=== PATIENT | female | born 1960 | race Caucasian/White ===

== ENCOUNTER → 2016-09-23 | Outpatient (CLI) | payer BC ==
--- NOTE | 2016-09-23 09:41 | WOMENS IMAGING REPORT ---
EXAM DESCRIPTION: RIGHT DIAGNOSTIC MAMMO W/CAD; U/S BREAST UNILAT LIMITED COMPLETED DATE/TIME: 09/23/2016 8:38 am; 09/23/2016 9:00 am REASON FOR STUDY: N63, BREAST LUMP; RT BREAST LUMP N63 UNSPECIFIED LUMP IN BREAST COMPARISON: Previous mammograms since 2011 TECHNIQUE: Right breast 90 mediolateral view, right breast cone compression craniocaudal and mediol ateral oblique images of the breast recorded with digital acquisition. Right breast ultrasound LIMITATIONS: None. FINDINGS: BREAST: Right MASSES: In the 6 o'clock position, a well-circumscribed low-density mammographic nodule is present 8 to 9 mm in diameter. CALCIFICATIONS: No new or suspicious calcifications. ARCHITECTURAL DISTORTION: None. DEVELOPING DENSITY: None. ASYMMETRY: None noted. OTHER: No other significant findings. Right breast ultrasound: Ultrasound of the right breast 6 to 7 o'clock position 5 cm from the nipple demonstrates a well-circu mscribed hypoechoic nodule with low level internal echoes. There is acoustic through transmission. This is not a simple cyst. This may represent a papilloma or fibroadenoma. A well-circumscribed mal ignant nodule could not entirely be excluded. IMPRESSION: Complex cystic versus hypoechoic solid nodule right breast 6 o'clock position, 8 to 9 mm in diameter. This is indeterminate for malignancy, ultrasound-guided core biopsy post biopsy clip p lacement and follow-up two-view mammogram recommended. These findings were discussed with the patient the time of the encounter. She understands a biopsy i s warranted. BREAST DENSITY: c. The breasts are heterogeneously dense, which may obscure small masses. BIRAD: 4B-Suspicious abnormality: Lesion which may require intervention with intermediate suspicion for malignancy. RECOMMENDATION: RECOMMENDED FOLLOW UP: Right breast ultrasound-guided core biopsy, post biopsy clip placement with follow-up two-view mammogram of the nodule right breast 6 o'clock position 5 cm from t he nipple. SPECIFIC INTERVENTION/IMAGING/CONSULTATION RECOMMENDED:As above COMMUNICATION:These results were discussed with the patient. She understands the need for biopsy. COMMENT: The patient has been notified of the results by letter per MQSA requirements. Additional no tification policies are in place for contacting patient with suspicious or incomplete findings. Quality ID #225: The [employer] recommends an annual screening mammogram for women aged 40 years or over. This facility utilizes a reminder system to ensure that all patients receive reminder letters, and/or direct phone calls for appointments. This includes reminders for routine scr eening mammograms, diagnostic mammograms, or other Breast Imaging Interventions when appropriate. Th is patient will be placed in the appropriate reminder system. The [employer] ([employer]) has developed recommendations for screening MRI of the breast s in certain patient populations, to be used in conjunction with mammography. Breast MRI surveillanc e may be appropriate for women with more than 20% lifetime risk of developing breast cancer as deter mined by genetic testing, significant family history of the disease, or history of mantle radiation f or Hodgkins Disease. ACR Practice Guidelines 2008. TECHNICAL DOCUMENTATION: FINDING NUMBER: (1) ASSESSMENT: (1) JOB ID: [id number] [employer]- All Rights Reserved
== END ==
LOC: WI 09:46
PROVIDERS: ATTEND Family Medicine
DX: N63 Unspecified lump in breast (principal)
CPT/HCPCS: 76642; G0206

== ENCOUNTER → 2016-10-07 | Outpatient (CLI) | payer BC ==
[2016-10-07 12:31] LABS: FREE T3 3.79 pg/mL (2.77-5.27)
[2016-10-07 12:45] LABS: THYROID STIMULATING HORMONE 0.07 uIU/mL (0.47-4.68)
== END ==
LOC: LAB 11:28
PROVIDERS: ATTEND Family Medicine
DX: E03.9 Hypothyroidism, unspecified (principal)
CPT/HCPCS: 36415; 84439; 84443; 84481

== ENCOUNTER → 2018-02-01 | Outpatient (CLI) | payer BC ==
--- NOTE | 2018-02-01 15:31 | RADIOLOGY REPORT (SQ) ---
EXAM DESCRIPTION: KNEE LEFT 4 VIEWS COMPLETED DATE/TIME: 02/01/2018 2:42 pm REASON FOR STUDY: UNSPECIFIED INJURY OF LEFT LOWER LEG, INITIAL ENCOUNTER S89.92XA UNSPECIFIED INJU RY OF LEFT LOWER LEG, INITIAL ENCOU COMPARISON: None. NUMBER OF VIEWS: Four views. TECHNIQUE: AP, lateral, and both oblique radiographic images acquired of the left knee. LIMITATIONS: None. FINDINGS: MINERALIZATION: Normal. BONES: Old proximal tibial fracture with a lateral compression plate and multiple screws. No acute f racture is appreciated. JOINT: No effusion. SOFT TISSUES: No soft tissue swelling. No radio-opaque foreign body. OTHER: No other significant finding. IMPRESSION: Old tibial fracture with hardware. No acute osseous abnormality. TECHNICAL DOCUMENTATION: JOB ID: [id number] [employer]- All Rights Reserved Reading location - IP/workstation name: [email or web address]
== END ==
LOC: OD 14:20
PROVIDERS: ATTEND Family Medicine
DX: S89.92XA Unspecified injury of left lower leg, initial encounter (principal); X58.XXXA Exposure to other specified factors, initial encounter

== ENCOUNTER → 2019-08-28 | Outpatient (CLI) | payer BC ==
--- NOTE | 2019-08-28 17:15 | RADIOLOGY REPORT (SQ) ---
EXAM DESCRIPTION: SHOULDER LEFT 2 OR MORE VIEWS IMAGES COMPLETED DATE/TIME: 08/28/2019 5:01 pm REASON FOR STUDY: PAIN OF RT MIDDLE FINGER;ACUTE PAIN OF LEFT SHOULDER M25.512 PAIN IN LEFT SHOULDE R M79.644 PAIN IN RIGHT FINGER(S) COMPARISON: None. NUMBER OF VIEWS: Three views. TECHNIQUE: Internal rotation, external rotation, and Y view images acquired of the left shoulder. LIMITATIONS: None. FINDINGS: MINERALIZATION: Normal. BONES: No acute fracture. No worrisome bone lesions. JOINTS: No dislocation. VISUALIZED LUNGS AND RIBS: No pneumothorax. No rib fracture. SOFT TISSUES: No radiopaque foreign body. OTHER: No other significant finding. IMPRESSION: NEGATIVE STUDY OF THE LEFT SHOULDER. NO RADIOGRAPHIC EVIDENCE OF ACUTE INJURY. TECHNICAL DOCUMENTATION: JOB ID: [id number] 2010 [employer]- All Rights Reserved Reading location - IP/workstation name: [email or web address]
--- NOTE | 2019-08-28 17:21 | RADIOLOGY REPORT (SQ) ---
EXAM DESCRIPTION: HAND RIGHT 3 VIEWS IMAGES COMPLETED DATE/TIME: 08/28/2019 5:01 pm REASON FOR STUDY: PAIN OF RT MIDDLE FINGER;ACUTE PAIN OF LEFT SHOULDER M25.512 PAIN IN LEFT SHOULDE R M79.644 PAIN IN RIGHT FINGER(S) COMPARISON: None. EXAM PARAMETERS: NUMBER OF VIEWS: Three views. TECHNIQUE: AP, lateral and oblique radiographic images acquired of the right hand. LIMITATIONS: None. FINDINGS: MINERALIZATION: Normal. BONES: There is a lucent line in the head of the 3rd metacarpal that runs parallel to the length of t he bone. JOINTS: No effusions. SOFT TISSUES: No soft tissue swelling. No foreign body. OTHER: No other significant finding. IMPRESSION: Cannot entirely exclude nondisplaced fracture of the head of the 3rd metacarpal. Correl ate clinically. Follow-up as needed. TECHNICAL DOCUMENTATION: JOB ID: [id number] 2010 [employer]- All Rights Reserved Reading location - IP/workstation name: [email or web address]
== END ==
LOC: OD 16:16
PROVIDERS: ATTEND Family Medicine
DX: M25.512 Pain in left shoulder (principal); M79.644 Pain in right finger(s)